=== PATIENT | female | born 1995 | race Caucasian/White ===

== ENCOUNTER 2017-04-25 02:54 | Emergency (ER) | payer OTHER ==
[2017-04-25 03:01] VITALS: RESP 16
[2017-04-25 03:26] LABS: % IMMATURE GRANULYOCYTES 0.3 % (0.0-1.1); ABSOLUTE IMMATURE GRANULOCYTES 0.03 10^3/uL (0.00-0.10); ADD DIFF? NO; ADD MORPH? NO; ADD SCAN? NO; ATYPICAL LYMPHOCYTE FLAG 10 (0-99); FRAGMENT RBC FLAG 0 (0-99); HEMATOCRIT 42.5 % (38.0-47.0); HEMOGLOBIN 15.1 g/dL (12.6-16.3); LEFT SHIFT FLG 0 (0-99); LIPEMIA HEMOLYSIS FLAG 90 (0-99); MEAN CELL HEMOGLOBIN CONCENTR. 35.5 g/dL (32.4-36.7); MEAN CELL VOLUME 87.3 fL (81.5-99.8); MEAN PLATELET VOLUME 8.7 fL (8.7-11.7); PLATELET CLUMPS FLAG 0 (0-99); PLATELET COUNT 330 10^3/uL (150-400); RED BLOOD CELL COUNT 4.87 10^6/uL (4.18-5.33); RED CELL DISTRIBUTION WIDTH 12.6 % (11.5-15.2)
[2017-04-25 03:32] LABS: COLOR YELLOW; LEUKOCYTE ESTERASE,URINE NEGATIVE (NEGATIVE); NITRITE,URINE NEGATIVE (NEGATIVE)
[2017-04-25 03:34] LABS: BACTERIA TRACE /hpf (NONE SEEN); MUCUS TRACE /lpf (NONE-1+); WBC,URINE NONE SEEN /hpf (0-3)
[2017-04-25 03:37] LABS: ANION GAP 17 mEq/L (8-16); CALCIUM 10.2 mg/dL (8.5-10.4); CARBON DIOXIDE 26 mEq/l (22-31); CHLORIDE 102 mEq/L (97-110); CREATININE 0.6 mg/dL (0.6-1.0); GLOMERULAR FILTRATION RATE > 60; GLUCOSE 86 mg/dL (70-100); SODIUM 145 mEq/L (134-144)
[2017-04-25] MEDS ORDERED: HYDROmorphONE/DILAUDID 1 MG/ML INJ IVP PRN (04:14)
[2017-04-25] MEDS ORDERED: KETOROLAC 15 MG/1 ML SDV IVP ONE (04:14)
[2017-04-25] MEDS ORDERED: IOPAMIDOL (ISOVUE-300) 100 ML BTL ONE (04:17)
--- NOTE | 2017-04-25 05:26 | EDPHY ---
H & P Stated Complaint: L Lower quad pain HPI/ROS: HPI The patient presents brought in by ambulance with left lower quadrant and left flank pain which began suddenly, about 2 hr prior to presentation. It initially felt like a bad cramp, she then noticed that she could not walk very well because the pain was so severe and she had to sit down. The pain is been constant ever since and is now more sharp in nature. She reports decreased urine output in associated nausea. She reports less appetite than usual. His she says she is having bowel movements. She has a history of as ureterolithiasis requiring stenting.. REVIEW OF SYSTEMS Constitutional: No fever, no chills. Eyes: No discharge. ENT: No sore throat. Cardiovascular: No chest pain, no palpitations. Respiratory: No cough, no shortness of breath. Gastrointestinal: Positive for abdominal pain, no vomiting. Genitourinary: No hematuria. Musculoskeletal: No back pain. Skin: No rashes. Neurological: No headache. PMHx: Scoliosis status post spinal operation, has been on opiate pain medications, history of kidney stones Soc Hx: Recently moved here from [place], college student PHYSICAL General Appearance: Alert, no distress Eyes: Pupils equal and round no pallor or injection ENT, Mouth: Mucous membranes moist Respiratory: There are no retractions, lungs are clear to auscultation Cardiovascular: Regular rate and rhythm Gastrointestinal: Abdomen is soft with tenderness in the left lower quadrant without rebound or guarding, there is also left flank tenderness, no masses, bowel sounds normal Neurological: A&O, moves all extremities Skin: Warm and dry, no rashes Musculoskeletal: Neck is supple non tender Extremities: symmetrical, full range of motion Psychiatric: Patient is oriented X 3, there is no agitation Source: Patient Exam Limitations: No limitations - Personal History LMP (Females 10-55): Irregular Current Tetanus/Diphtheria Vaccine: Yes Current Tetanus Diphtheria and Acellular Pertussis (TDAP): Yes - Medical/Surgical History Hx Asthma: No Hx Chronic Respiratory Disease: No Hx Diabetes: No Hx Cardiac Disease: No Hx Renal Disease: No Hx Cirrhosis: No Hx Alcoholism: No Hx HIV/AIDS: No Hx Splenectomy or Spleen Trauma: No Other PMH: anemia. scoliosis. migraines. anxiety. depression. IBS. interstistial cystitis - Social History Smoking Status: Never smoked Constitutional: Initial Vital Signs Temperature (C) 36.8 C 04/25/17 03:00 Heart Rate 90 04/25/17 03:00 Respiratory Rate 16 04/25/17 03:00 Blood Pressure 120/68 04/25/17 03:00 O2 Sat (%) 95 04/25/17 03:00 O2 Delivery Mode Room Air Allergies/Adverse Reactions: morphine Allergy (Verified 04/25/17 02:59) Home Medications: Medication Instructions Recorded Ferrous Gluconate [Iron] 236 mg PO 03/13/16 Hydrocodone/Acetaminophen [Vicodin 1 each PO 03/13/16 5-300 mg Tablet] Mybtriq 03/13/16 oxyCODONE HCL [Oxycontin] 10 mg PO 03/13/16 Polyethylene Glycol 3350 [Miralax 17 gm PO DAILY #10 pkt 04/25/17 17 gm (*)] Medical Decision Making - Diagnostics Imaging Results: CT scan abdomen pelvis shows constipation, discussed with Dr. Yusuf of Radiology. Procedures: Bedside limited abdominal Ultrasound- performed and interpreted by me. Indication: Hematuria and flank pain Findings: No hydronephrosis bilaterally, no fluid in Morison's pouch, no kidney stones visualized Impression: No sonographic evidence of kidney stone Differential Diagnosis: 21-year-old female with history of kidney stones, also scoliosis status post spinal operation, presents with several hours of left lower quadrant and left flank pain associated with nausea. Differential diagnosis includes ureterolithiasis, pyelonephritis, diverticulitis , colitis, constipation. In the emergency department, bedside renal ultrasound was performed and was unremarkable. Patient's pain persisted despite pain medication. CT scan was subsequently performed and showed constipation. The patient also had hematuria. It is possible she could have passed a kidney stone, however this of present there is no hydronephrosis. I think her pain could very well be related to constipation alone. I have advised her to start taking MiraLax I will have her follow up with her primary care doctor in 1-2 days. - Data Points Laboratory Results: Laboratory Results 04/25/17 03:05 04/25/17 03:05 04/25/17 04/25/17 04/25/17 03:11 03:05 03:05 WBC RBC Hgb Hct MCV MCH MCHC RDW Plt Count MPV Neut % (Auto) Lymph % (Auto) [place] % (Auto) Eos % (Auto) Baso % (Auto) Nucleat RBC Rel Count Absolute Neuts (auto) Absolute Lymphs (auto) Absolute Monos (auto) Absolute Eos (auto) Absolute Basos (auto) Absolute Nucleated RBC Immature Gran % Immature Gran # Sodium 145 mEq/L H mEq/L (134-144) Potassium 4.0 mEq/L mEq/L (3.5-5.2) Chloride 102 mEq/L mEq/L (97-110) Carbon Dioxide 26 mEq/l mEq/l (22-31) Anion Gap 17 mEq/L H mEq/L (8-16) BUN 9 mg/dL mg/dL (7-23) Creatinine 0.6 mg/dL mg/dL (0.6-1.0) Estimated GFR > 60 Glucose 86 mg/dL mg/dL (70-100) Calcium 10.2 mg/dL mg/dL (8.5-10.4) Beta HCG, Qual NEGATIVE Urine Color YELLOW Urine Appearance CLEAR Urine pH 6.0 (5.0-7.5) Ur Specific [place] 1.010 (1.002-1.030) Urine Protein NEGATIVE (NEGATIVE) Urine Ketones TRACE H (NEGATIVE) Urine Blood 1+ H (NEGATIVE) Urine Nitrate NEGATIVE (NEGATIVE) Urine Bilirubin NEGATIVE (NEGATIVE) Urine Urobilinogen NEGATIVE EU EU (0.2-1.0) Ur Leukocyte Esterase NEGATIVE (NEGATIVE) Urine RBC 10-15 /hpf H /hpf (0-3) Urine WBC NONE SEEN /hpf /hpf (0-3) Ur Epithelial Cells TRACE /lpf /lpf (NONE-1+) Urine Bacteria TRACE /hpf H /hpf (NONE SEEN) Urine Mucus TRACE /lpf /lpf (NONE-1+) Urine Glucose NEGATIVE (NEGATIVE) 04/25/17 03:05 WBC 9.84 10^3/uL H 10^3/uL (3.80-9.50) RBC 4.87 10^6/uL 10^6/uL (4.18-5.33) Hgb 15.1 g/dL g/dL (12.6-16.3) Hct 42.5 % % (38.0-47.0) MCV 87.3 fL fL (81.5-99.8) MCH 31.0 pg pg (27.9-34.1) MCHC 35.5 g/dL g/dL (32.4-36.7) RDW 12.6 % % (11.5-15.2) Plt Count 330 10^3/uL 10^3/uL (150-400) MPV 8.7 fL fL (8.7-11.7) Neut % (Auto) 61.4 % % (39.3-74.2) Lymph % (Auto) 31.3 % % (15.0-45.0) [place] % (Auto) 6.1 % % (4.5-13.0) Eos % (Auto) 0.5 % L % (0.6-7.6) Baso % (Auto) 0.4 % % (0.3-1.7) Nucleat RBC Rel Count 0.0 % % (0.0-0.2) Absolute Neuts (auto) 6.04 10^3/uL 10^3/uL (1.70-6.50) Absolute Lymphs (auto) 3.08 10^3/uL H 10^3/uL (1.00-3.00) Absolute Monos (auto) 0.60 10^3/uL 10^3/uL (0.30-0.80) Absolute Eos (auto) 0.05 10^3/uL 10^3/uL (0.03-0.40) Absolute Basos (auto) 0.04 10^3/uL 10^3/uL (0.02-0.10) Absolute Nucleated RBC 0.00 10^3/uL 10^3/uL (0-0.01) Immature Gran % 0.3 % % (0.0-1.1) Immature Gran # 0.03 10^3/uL 10^3/uL (0.00-0.10) Sodium Potassium Chloride Carbon Dioxide Anion Gap BUN Creatinine Estimated GFR Glucose Calcium Beta HCG, Qual Urine Color Urine Appearance Urine pH Ur Specific [place] Urine Protein Urine Ketones Urine Blood Urine Nitrate Urine Bilirubin Urine Urobilinogen Ur Leukocyte Esterase Urine RBC Urine WBC Ur Epithelial Cells Urine Bacteria Urine Mucus Urine Glucose Medications Given: Discontinued Medications Ketorolac Tromethamine (Toradol) 15 mg IVP EDNOW ONE Stop: 04/25/17 04:15 Last Admin: 04/25/17 04:42 Dose: 15 mg Departure - Departure Disposition: Home, Routine, Self-Care Clinical Impression: Left sided abdominal pain, Hematuria, Constipation Condition: Good Instructions: Constipation (ED), High Fiber Diet (ED) Additional Instructions: Please take the MiraLax as prescribed. Your CT scan showed that you have constipation. It is possible that you may have passed a kidney stone because we found the blood in your urine. Please make sure to drink plenty of fluids. Follow up with your primary care doctor in 1-2 days. Referrals: Yee Cali RN, FAILURE ANALYSIS TECHNICIAN [Primary Care Provider] - As per Instructions Prescriptions: Polyethylene Glycol 3350 [Miralax 17 gm (*)] 17 gm PO DAILY #10 pkt
[2017-04-25 05:42] VITALS: BP 132/74; PULSE 70; TEMP 98.1; O2SAT 97
== END 2017-04-25 05:43 | disposition home or self-care (01) ==
LOC: EDUNIT#
DX: K59.00 Constipation, unspecified (principal); R31.9 Hematuria, unspecified
CPT/HCPCS: 96374; J1885; Q9967

== ENCOUNTER 2018-06-07 13:21 | Inpatient (IN) | payer OTHER ==
--- NOTE | 2018-06-07 13:27 | EDPHY ---
H & P Time Seen by Provider: 06/07/18 13:25 - Medical/Surgical History Hx Asthma: No Hx Chronic Respiratory Disease: No Hx Diabetes: No Hx Cardiac Disease: No Hx Renal Disease: No Hx Cirrhosis: No Hx Alcoholism: No Hx HIV/AIDS: No Hx Splenectomy or Spleen Trauma: No Other PMH: anemia. scoliosis. migraines. anxiety. depression. IBS. interstistial cystitis - Social History Smoking Status: Never smoked Constitutional: Initial Vital Signs Temperature (C) 36.3 C 06/07/18 13:25 Heart Rate 78 06/07/18 13:25 Respiratory Rate 18 06/07/18 13:25 Blood Pressure 98/63 L 06/07/18 13:25 O2 Sat (%) 96 06/07/18 13:25 O2 Delivery Mode Room Air Allergies/Adverse Reactions: fentanyl Allergy (Mild, Verified 06/07/18 14:25) Itching morphine Allergy (Verified 06/07/18 13:24) Home Medications: Medication Instructions Recorded LORazepam [Ativan (*)] 0.5 mg PO DAILY PRN 06/07/18 Naproxen Sodium [Aleve 220 MG (*)] 220 mg PO BID PRN 06/07/18 Ondansetron Odt [Zofran Odt 4 mg 4 mg PO Q6H PRN 06/07/18 (*)] Seroquel 06/07/18 Sumatriptan Succinate 100 mg PO ONCE PRN 06/07/18 ZOLMitriptan [Zomig] 5 mg NS ONCE PRN 06/07/18 Medical Decision Making - Diagnostics Imaging Results: Imaging Impressions Abdomen Ultrasound 06/07/18 13:34 Impression: Incomplete visualization of the probable appendix with no sonographic evidence of appendicitis. Findings discussed with Karl Alonzo MD 06/07/2018 at 15:13. Pelvic/Renal Ultrasound 06/07/18 13:34 Impression: 6.8 cm hemorrhagic cyst in the right ovary. Given size, a six-week follow-up ultrasound is recommended to ensure resolution. Findings discussed with Karl Alonzo MD 06/07/2018 at 15:13. Imaging: Discussed imaging studies w/ straddle bug driver Radiologist ED Course/Re-evaluation: CHIEF COMPLAINT: Abdominal pain HISTORY OF PRESENT ILLNESS: This patient is a 22 year old female arriving via EMS complaining of right- sided abdominal pain. She states "I'm concerned about my appendix". She has had diarrhea and nausea for the past two days. This morning, considerable pain in her right lower quadrant woke her from sleep at 6:00am. She has vomited several times today and endorses fevers and chills. The patient notes she has a "condition where her [abdominal] anatomy is not in the right spot" and has history of bowel obstruction. She has not undergone surgeries for this but was told this may be a concern in the future. The patient additionally states she used to be on Depo, but discontinued this over the summer. She has not had any prior adverse symptoms from this. EMS crews administered 4mg IV Zofran and 100mcg IV Fentanyl in transport, which helped relieve her symptoms. She denies any blood in her stool or emesis. No chest pain, shortness of breath, headache, urinary complaints, recent cold or cough, or other associated symptoms. REVIEW OF SYSTEMS: A comprehensive 10 system review of systems is otherwise negative aside from elements mentioned in the history of present illness and medical decision making. PHYSICAL EXAM: HR, BP, O2 Sat, RR. Temp noted General Appearance: Alert, well hydrated, appropriate, and non-toxic appearing. Head: Atraumatic without scalp tenderness or obvious injury Eyes: Pupils equal, round, reactive to light and accommodation, EOMI, no trauma , no injection. Ears: Clear bilaterally, no perforation, normal landmarks Nose: Atraumatic, no rhinorrhea, clear. Throat: There is no erythema or exudates, no lesions, normal tonsils, mucus membranes moist. Neck: Supple, nontender, no lymphadenopathy. Respiratory: No retractions, no distress, no wheezes, and no accessory muscle use. Lungs are clear to auscultation bilaterally. Cardiovascular: Regular rate and rhythm, no murmurs, rubs, or gallops. Bilateral carotid, radial, dorsalis pedis, and posterior tibial pulses intact. Good capillary refill all extremities. Gastrointestinal: RLQ tenderness, below McBurney's point. Abdomen is soft, non- distended, no masses, no rebound, no guarding, no peritoneal signs. Musculoskeletal: Normal active ROM of all extremities, atraumatic. Neurological: Alert, appropriate, and interactive. The patient has normal DTRs and non-focal cranial nerves, motor, sensory, and cerebellar exam. Skin: No rashes, good turgor, no nodules on palpation. Past medical history: Anemia, scoliosis, migraines, anxiety, depression Past surgical history: Noncontributory. Patient has not had any abdominal surgeries. Family history: Noncontributory Social history: [facility] [employer]. Single. Does not abuse tobacco, drugs, or alcohol. DIFFERENTIAL DIAGNOSIS: The differential diagnosis for the patient's abdominal pain included but was not limited to ovarian cyst, pelvic inflammatory disease, ovarian torsion, urinary tract infection, ectopic , cholecystitis, and appendicitis. MEDICAL DECISION MAKIN22 y/o female presents with two day history of nausea and diarrhea with acute onset right lower abdominal pain which woke her from sleep this morning. On exam , she has tenderness to the RLQ, lower than McBurney's point. Plan for labs including CBC, chemistries, liver, lipase, BHCG, UA. Plan to administer 30g IV ketorolac and 100mcg Fentanyl for pain relief. Plan to administer Zofran prn for nausea - patient currently feels relief from Zofran administered in transport. Plan for US abdomen and pelvis. Reviewed laboratory studies. WBC is mildly elevated. Labs otherwise largely unremarkable. BCHG negative. 15:[address] Boyer, radiologist. US shows evidence of large right- sided hemorrhagic ovarian cyst, 6.8cm. Partially visualized appendix appears normal. Recommend followup US in 4-6 weeks. Reassessed patient. Discussed imaging results. Patient has not been able to tolerate food or fluids. Plan for PO challenge prior to discharge. Discussed possibility of admission for symptom management if the patient cannot tolerate PO challenge. Patient still not feeling well after four hours. Plan to admit. Dr. Lowe accepts admission to mom/baby floor for further treatment of hemorrhagic ovarian cyst with free fluid and intractable pain and nausea. Of note, there is no ovarian torsion noted, no evidence of other acute intraabdominal processes at this time. - Data Points Laboratory Results: Laboratory Results 06/07/18 13:45 06/07/18 13:45 06/07/18 06/07/18 06/07/18 14:40 13:45 13:45 WBC RBC Hgb Hct MCV MCH MCHC RDW Plt Count MPV Neut % (Auto) Lymph % (Auto) [place] % (Auto) Eos % (Auto) Baso % (Auto) Nucleat RBC Rel Count Absolute Neuts (auto) Absolute Lymphs (auto) Absolute Monos (auto) Absolute Eos (auto) Absolute Basos (auto) Absolute Nucleated RBC Immature Gran % Immature Gran # Sodium 136 mEq/L mEq/L (135-145) Potassium 3.9 mEq/L mEq/L (3.5-5.2) Chloride 106 mEq/L mEq/L (97-110) Carbon Dioxide 24 mEq/l mEq/l (22-31) Anion Gap 6 mEq/L mEq/L (6-14) BUN 8 mg/dL mg/dL (7-23) Creatinine 0.5 mg/dL L mg/dL (0.6-1.0) Estimated GFR > 60 Glucose 84 mg/dL mg/dL (70-100) Calcium 9.2 mg/dL mg/dL (8.5-10.4) Total Bilirubin 0.4 mg/dL mg/dL (0.1-1.4) Conjugated Bilirubin 0.3 mg/dL mg/dL (0.0-0.5) Unconjugated Bilirubin 0.1 mg/dL mg/dL (0.0-1.1) AST 18 IU/L IU/L (14-46) ALT 23 IU/L IU/L (9-52) Alkaline Phosphatase 64 IU/L IU/L (38-126) Total Protein 6.8 g/dL g/dL (6.3-8.2) Albumin 4.1 g/dL g/dL (3.5-5.0) Lipase 176 IU/L IU/L (23-300) Beta HCG, Qual NEGATIVE Urine Color PALE YELLOW Urine Appearance CLEAR Urine pH 7.0 (5.0-7.5) Ur Specific [place] 1.006 (1.002-1.030) Urine Protein NEGATIVE (NEGATIVE) Urine Ketones NEGATIVE (NEGATIVE) Urine Blood NEGATIVE (NEGATIVE) Urine Nitrate NEGATIVE (NEGATIVE) Urine Bilirubin NEGATIVE (NEGATIVE) Urine Urobilinogen NEGATIVE EU EU (0.2-1.0) Ur Leukocyte Esterase NEGATIVE (NEGATIVE) Urine RBC NONE SEEN /hpf /hpf (0-3) Urine WBC 0-1 /hpf /hpf (0-3) Ur Epithelial Cells TRACE /lpf /lpf (NONE-1+) Urine Bacteria 2+ /hpf H /hpf (NONE SEEN) Urine Mucus TRACE /lpf /lpf (NONE-1+) Urine Glucose NEGATIVE (NEGATIVE) 06/07/18 13:45 WBC 9.54 10^3/uL H 10^3/uL (3.80-9.50) RBC 4.74 10^6/uL 10^6/uL (4.18-5.33) Hgb 14.6 g/dL g/dL (12.6-16.3) Hct 43.4 % % (38.0-47.0) MCV 91.6 fL fL (81.5-99.8) MCH 30.8 pg pg (27.9-34.1) MCHC 33.6 g/dL g/dL (32.4-36.7) RDW 12.8 % % (11.5-15.2) Plt Count 262 10^3/uL 10^3/uL (150-400) MPV 8.9 fL fL (8.7-11.7) Neut % (Auto) 76.9 % H % (39.3-74.2) Lymph % (Auto) 17.2 % % (15.0-45.0) [place] % (Auto) 4.6 % % (4.5-13.0) Eos % (Auto) 0.6 % % (0.6-7.6) Baso % (Auto) 0.4 % % (0.3-1.7) Nucleat RBC Rel Count 0.0 % % (0.0-0.2) Absolute Neuts (auto) 7.33 10^3/uL H 10^3/uL (1.70-6.50) Absolute Lymphs (auto) 1.64 10^3/uL 10^3/uL (1.00-3.00) Absolute Monos (auto) 0.44 10^3/uL 10^3/uL (0.30-0.80) Absolute Eos (auto) 0.06 10^3/uL 10^3/uL (0.03-0.40) Absolute Basos (auto) 0.04 10^3/uL 10^3/uL (0.02-0.10) Absolute Nucleated RBC 0.00 10^3/uL 10^3/uL (0-0.01) Immature Gran % 0.3 % % (0.0-1.1) Immature Gran # 0.03 10^3/uL 10^3/uL (0.00-0.10) Sodium Potassium Chloride Carbon Dioxide Anion Gap BUN Creatinine Estimated GFR Glucose Calcium Total Bilirubin Conjugated Bilirubin Unconjugated Bilirubin AST ALT Alkaline Phosphatase Total Protein Albumin Lipase Beta HCG, Qual Urine Color Urine Appearance Urine pH Ur Specific [place] Urine Protein Urine Ketones Urine Blood Urine Nitrate Urine Bilirubin Urine Urobilinogen Ur Leukocyte Esterase Urine RBC Urine WBC Ur Epithelial Cells Urine Bacteria Urine Mucus Urine Glucose Medications Given: Discontinued Medications Hydrocodone Bitart/Acetaminophen ([place] 5/325) 2 tab PO EDNOW ONE Stop: 06/07/18 16:20 Last Admin: 06/07/18 16:24 Dose: 2 tab Diphenhydramine HCl (Benadryl Injection) 25 mg IVP EDNOW ONE Stop: 06/07/18 14:20 Last Admin: 06/07/18 14:24 Dose: 25 mg Fentanyl (Sublimaze) 100 mcg IVP EDNOW ONE Stop: 06/07/18 13:35 Last Admin: 06/07/18 13:45 Dose: 100 mcg Sodium Chloride (Ns) 1,000 mls @ 0 mls/hr IV EDNOW ONE; Wide Open PRN Reason: Protocol Stop: 06/07/18 13:33 Last Admin: 06/07/18 13:45 Dose: 1,000 mls Sodium Chloride (Ns) 1,000 mls @ 0 mls/hr IV EDNOW ONE; Wide Open PRN Reason: Protocol Stop: 06/07/18 13:33 Last Admin: 06/07/18 14:24 Dose: 1,000 mls Ketorolac Tromethamine (Toradol) 30 mg IVP EDNOW ONE Stop: 06/07/18 13:35 Last Admin: 06/07/18 13:46 Dose: 30 mg Ondansetron HCl (Zofran) 4 mg IVP EDNOW ONE Stop: 06/07/18 13:33 Last Admin: 06/07/18 13:46 Dose: 4 mg Departure - Departure Disposition: [facility] Clinical Impression: Hemorrhagic cyst of right ovary Condition: Fair Instructions: Ovarian Cyst (ED) Referrals: Rhonda Lowe DO [Doctor of Osteopathy] - As per Instructions Report Scribed for: Karl Alonzo Report Scribed by: Jessenia Lux Date of Report: 06/07/18 Time of Report: 13:36
[2018-06-07] MEDS ORDERED: NS 1,000 ML IV ONE ×2 (13:32)
[2018-06-07] MEDS ORDERED: ONDANSETRON 4 MG/2 ML VIAL IVP ONE (13:32)
[2018-06-07] MEDS ORDERED: KETOROLAC 30 MG/1 ML SDV IVP ONE (13:34)
[2018-06-07] MEDS ORDERED: fentaNYL 100 MCG/2 ML INJ IVP ONE (13:34)
[2018-06-07 14:10] LABS: PLATELET COUNT 262 10^3/uL (150-400)
[2018-06-07] MEDS ORDERED: HYDROCODONE/APAP 5/325 TAB PO ONE (16:19)
[2018-06-07] MEDS: KETOROLAC 30 MG/1 ML SDV IVP PRN (21:02)
--- NOTE | 2018-06-07 21:30 | GHP ---
[f rep st] HISTORY AND PHYSICAL ADMITTING DIAGNOSES: 1. Right lower quadrant pain. 2. Nausea/vomiting. HISTORY OF PRESENT ILLNESS: Patient is a 22-year-old nulliparous female with unknown last menstrual period, who arrives to the emergency room this evening via EMS complaining of right-sided abdominal pain. Patient states "I'm concerned about my appendix." She has had diarrhea and nausea and just not feeling well for the past week. This morning at 6 a.m., she woke up in considerable pain in her right lower quadrant. She states it is mostly localized. Pain is exacerbated with laughing and sharp movement. She does endorse nausea and vomited several times earlier today. Also endorses fevers and chills. Patient notes that she has a "condition where her abdominal anatomy is not it the right spot," and has a history of bowel obstruction. She has not undergone surgery for this but was told this may be a concern in the future. Patient is not using control at this time and discontinued Depo in October/November of 2017. She has not had a menstrual period since then. Patient does not recall history of ovarian cysts or any pain like this. Patient did receive Zofran and fentanyl in transport, which helped relieve her symptoms. She denies any chest pain, shortness of breath, or any urinary complaints. Patient does have a history of interstitial cystitis and history of back pain with 3 rods placed and narcotic use. Patient lives here in [place] and does not have a flight purser. PAST OB/GYNECOLOGICAL HISTORY: Patient is nulliparous. Unknown last menstrual period. Last Depo injection was November 2017. Patient does not have a history of abnormal Pap smears, and denies exposure to any STDs. PAST MEDICAL HISTORY: Remarkable for anemia, scoliosis, back pain, migraines, anxiety, depression, irritable bowel syndrome, and interstitial cystitis. PAST SURGICAL HISTORY: Back surgery with placement of 3 rods. CURRENT MEDICATIONS: Include Ativan, Aleve, Zofran ODT, Seroquel, Sumatriptan succinate, and Zomig. ALLERGIES: Morphine, fentanyl. FAMILY HISTORY: Unremarkable. SOCIAL HISTORY: Patient is a student at [employer]. She denies any illicit drug use or tobacco use. Does admit to marijuana use and socially drinking alcohol. REVIEW OF SYSTEMS: 10-point review of systems is negative. Pertinent positives noted in HPI. LABORATORY: White count is 9.5, H and H 14.6 and 43.4, platelets 262. BMP is normal. Qualitative beta hCG is negative. Urine is 2+ bacteria, trace epithelial cells, and a spec grav of 1.006. STUDIES: On pelvic ultrasound, uterus measures 3 x 3 x 6 cm. Bladder is normal appearing. The right ovary is 5 x 6 x 6 cm with a hemorrhagic cyst measuring 6.7 x 6.8 cm, essentially replacing the right ovary. Scant normal ovarian tissue is identified. There is flow to this ovary. Left ovary is normal appearing, 2 x 2 x 3.5 cm. There is moderate free fluid. The patient also had an abdominal ultrasound, which showed incomplete visualization of the appendix, but no sonographic evidence of an appendicitis. PHYSICAL EXAMINATION: VITAL SIGNS: On admission, the patient is afebrile at 36.3; blood pressure 98/63, repeated 113/59; heart rate 78; respiratory rate 18. GENERAL: Patient is a well-nourished, well-developed female. ASlert and oriented x3. No apparent distress here on the floor. SKIN: Warm, dry, without rash. NEURO: Grossly intact. CARDIOVASCULAR: Regular rate and rhythm. LUNGS: Clear to auscultation bilaterally. ABDOMEN: She is mildly/ moderately tender right lower quadrant. Abdomen is soft, nondistended. There are no peritoneal signs. There is no rebound but voluntary guarding. PELVIC: Deferred at this time. EXTREMITIES: Normal to inspection without calf tenderness or edema. ASSESSMENT AND PLAN: Patient is a 22-year-old nulliparous female with unknown last menstrual period with right lower quadrant pain, nausea and vomiting. 1. Will admit for observation for pain control. 2. Will continue Toradol and add Dilaudid for breakthrough severe pain. 3. Continue antiemetics - Zofran. 4. Patient is hemodynamically stable at this time, and does not have an acute abdomen. 5. Discussed observation overnight to see if there is adequate pain control. 7. Will keep patient nothing by mouth after midnight along with intravenous fluids, and if there is worsening pain will proceed with dx laparoscopy. /[id number]/MODL MTDD
[2018-06-07] MEDS: HYDROmorphONE/DILAUDID 1 MG/ML INJ IVP PRN (22:38)
[2018-06-08] MEDS: LR 1,000 ML IV SCH ×2 (00:17→07:48)
[2018-06-08] MEDS: QUEtiapine FUMARATE 25 MG TAB PO SCH ×3 (00:17→23:58)
[2018-06-08] MEDS: ONDANSETRON 4 MG/2 ML VIAL IVP PRN ×2 (01:09→11:05)
[2018-06-08] MEDS: HYDROmorphONE/DILAUDID 1 MG/ML INJ IVP PRN ×4 (01:09→10:48)
[2018-06-08] MEDS: KETOROLAC 30 MG/1 ML SDV IVP PRN ×2 (03:02→09:06)
[2018-06-08] MEDS ORDERED: HYDROmorphONE/DILAUDID 1 MG/ML INJ IVP PRN (12:37)
[2018-06-08] MEDS: IBUPROFEN 600 MG TAB PO SCH ×2 (14:26→17:57)
[2018-06-08] MEDS: ACETAMINOPHEN 325 MG TAB PO SCH ×2 (14:28→17:56)
[2018-06-08] MEDS: oxyCODONE IR 5 MG TAB PO PRN ×3 (14:29→20:12)
--- NOTE | 2018-06-08 15:32 | SOAPPROG ---
SOAP Progress Note Assessment/Plan: Assessment: HD 2 LLQ pain CYNTHIA cyst stable H/H Plan: Long disc with pt and mom. If pain dictates, then we need to proceed to OR....but concern that ovary might need to be removed. If pain can be managed orally, then can we allow spont resolution? Pt and mom discussed and want to try conservative management. will allow to eat and try regular ibu/tyl and oxy IR for break through severe pain. 06/08/18 15:27 Subjective: Pt states intense pain and not getting any relief from iv dilaudid. Disc plan with pt and mom.... either proceed to OR but concern she will have RSO vs try oral management. Long disc with pt and mom - disc ovarian suppression with hormone BC - pt reports being on Depo for 5-6 yrs... needs to give hormone holiday off Depo for bone health but needs ovarian suppression to prevent further cysts. She has migraines but denies aura --concern if combo pills will aggravate migraines but rec trying. After time to disc privately, pt decides to try conservative management. will allow reg diet and ibu/tyl and oxy prn Objective: Vital Signs Temp Pulse Resp BP Pulse Ox 36.8 C 70 16 99/61 L 99 06/08/18 08:00 06/08/18 10:54 06/08/18 10:54 06/08/18 10:54 06/08/18 10:54 Laboratory Results 06/08/18 13:10 06/07/18 06/08/18 06/09/18 05:59 05:59 05:59 Intake Total 2925 Output Total 350 Balance 2925 -350 - Time Spent With Patient Time Spent With Patient: 35 min spent in direct contact Physical Exam - Physical Exam General Appearance: WD/WN, alert Abdomen: non-tender (mildly tender, non distended.), soft Pelvic Exam: deferred Skin: normal color, warm/dry Extremities: non-tender, pedal edema (nonee) Neuro/Psych: alert ICD10 Worksheet Patient Problems: Problems Problem Status Onset Hemorrhagic cyst of right ovary Acute
[2018-06-08] MEDS ORDERED: Zolmitriptan [Zomig] 5 MG NS PRN (16:31)
--- NOTE | 2018-06-08 17:28 | PDMN ---
Medical Necessity Medical necessity: Change to inpt as of 06/08/18 @ 17:13, meets inpt criteria per MD order and Pain management GRG. 22 y/o admitted w/RLQ pain/nausea/diarrhea /fevers and chills, found to have hemorrhagic ovarian cyst in R ovary. Upgraded to inpt for pain management, despite IV Dilaudid roughly every 3-4hrs still w/ significant pain, surgery option discussed, attempting to see if pain can be managed w/PO meds and allow for spont resolution, surgery still possibility, still on IVF, IV antiemetics, anticipate>2MN for ongoing management of significant pain w/ovarian cyst.
[2018-06-08] MEDS ORDERED: oxyCODONE IR 5 MG TAB PO ONE (18:30)
[2018-06-08] MEDS: LORazepam 1 MG TAB PO PRN ×2 (18:50→23:51)
[2018-06-08] MEDS ORDERED: QUEtiapine FUMARATE 25 MG TAB PO SCH (21:00)
[2018-06-08] MEDS ORDERED: BISACODYL 10 MG SUPP PR PRN (21:09)
[2018-06-08] MEDS ORDERED: MAGNESIUM HYDROXIDE 30 ML UDCUP PO PRN (21:09)
[2018-06-08] MEDS ORDERED: LACTULOSE 20 GM/30 ML UDCUP PO PRN (21:09)
[2018-06-08] MEDS ORDERED: POLYETHYLENE GLYCOL 3350 17 GM PKT PO PRN (21:09)
[2018-06-08] MEDS ORDERED: QUEtiapine FUMARATE 25 MG TAB PO ONE (22:45)
--- NOTE | 2018-06-08 22:48 | SOAPPROG ---
SOAP Progress Note Assessment/Plan: Assessment: HD 2 LLQ pain - cont pain but managing on oral CYNTHIA cyst stable H/H Plan: Long disc with pt approx 1800. she states she's still having pain and really felt uncomfortable after pushing for BM. encouraged regular urination so bldr doesn't get too full and stool softeners. Pt states she's anxious to go home due to very stressful environment with boyfriend. Disc +/- of surg vs conservative obs. If needs increased pain meds tonight to get on top of pain, will reassess in am but cannot stay on high dose meds for long. rec adding ativan to help reduce anxiety. 06/08/18 15:27 06/08/18 22:42 Subjective: Pt states cont pain but still wanting to watch and try more oral meds to see if able to avoid surgery. Rec regular bowel meds to avoid constipation and urinating freq. Objective: Vital Signs Temp Pulse Resp BP Pulse Ox 36.4 C 85 16 108/74 95 06/08/18 22:00 06/08/18 22:00 06/08/18 22:00 06/08/18 22:00 06/08/18 22:00 06/07/18 06/08/18 06/09/18 05:59 05:59 05:59 Intake Total 500 Output Total 500 Balance 0 - Time Spent With Patient Time Spent With Patient: 30 min spent with pt Physical Exam - Physical Exam General Appearance: WD/WN Abdomen: non-tender (tender generally but not acute abd), soft, guarding Pelvic Exam: deferred Skin: normal color, warm/dry Extremities: non-tender Neuro/Psych: alert ICD10 Worksheet Patient Problems: Problems Problem Status Onset Hemorrhagic cyst of right ovary Acute
[2018-06-08] MEDS: SENNOSIDES/DOCUSATE SODIUM TAB PO SCH (23:50)
[2018-06-08] MEDS: diphenhydrAMINE 25 MG CAP PO PRN (23:50)
[2018-06-09] MEDS: IBUPROFEN 600 MG TAB PO SCH ×4 (00:05→19:45)
[2018-06-09] MEDS: ACETAMINOPHEN 325 MG TAB PO SCH ×4 (00:05→19:44)
[2018-06-09] MEDS: oxyCODONE IR 5 MG TAB PO PRN ×3 (01:31→15:02)
[2018-06-09] MEDS: ONDANSETRON 4 MG/2 ML VIAL IVP PRN ×3 (09:47→20:43)
[2018-06-09] MEDS: SENNOSIDES/DOCUSATE SODIUM TAB PO SCH (09:55)
[2018-06-09] MEDS: diphenhydrAMINE 25 MG CAP PO PRN (12:43)
--- NOTE | 2018-06-09 13:19 | SOAPPROG ---
SOAP Progress Note Assessment/Plan: Assessment: 22 G0 with RLQ pain with known 6-7cm R ov cyst, pain not controlled to her satisfaction, but does not have a surgical abdomen has been intermittently sleeping throughout the day. Hyperactive BS, no BM in 3 days. H/H dropping slightly - presumed dilutional effect. Plan: Long discussion with pt and her mom. Will continue with conservative mgmt for now - oral pain medication, antinausea medication. Obtain CT scan in AM. Repeat CBC and CMP in AM. Re-evaluate after labs and imaging. Carin Hernandez MD, [facility] 06/10/18 00:25 Subjective: Pt seen around 2300. Concerns that despite sleeping intermittently through the day, pain is not well controlled - better with dilaudid, but not sufficient. Has not had a BM since prior to admission. Ate dinner, but then vomited it up when had an episode of severe pain. Pt feels she has not made progress iwth pain control since admission, though her mom feels and has observed that her pain seems to be under better control. Objective: Vital Signs Temp Pulse Resp BP Pulse Ox 37.1 C 82 18 90/63 L 94 06/09/18 10:03 06/09/18 10:03 06/09/18 10:03 06/09/18 10:03 06/09/18 10:03 Laboratory Results 06/09/18 06:10 06/08/18 06/09/18 06/10/18 05:59 05:59 05:59 Intake Total 1300 Output Total 1800 200 Balance -500 -200 Temp Pulse Resp BP Pulse Ox 37.3 C 82 16 106/68 97 06/10/18 00:00 06/10/18 00:00 06/10/18 00:00 06/10/18 00:00 06/10/18 00:00 gen - resting comfortably in bed, conversing easily abd - soft, no rebound, mild guarding in RLQ - Time Spent With Patient Time Spent With Patient: 15 min - Pending Discharge Pending Discharge Within 24 Hours: Yes Pending Discharge Within 48 Hours: Yes Pending Discharge Date: 06/11/18 Pending Discharge Time: 11:00 ICD10 Worksheet Patient Problems: Problems Problem Status Onset Hemorrhagic cyst of right ovary Acute
--- NOTE | 2018-06-09 17:31 | SOAPPROG ---
JUAN ALBERTO Progress Note Assessment/Plan: Assessment: Assessment: 22 y/o nulliparous female with RLQ pain and hemorrhagic right ovarian cyst HD #3 Plan: Pain is not well controlled on 20 mg Oxy, Tylenol and Motrin per pt - pain 9/10 currently; vomited x 3 today Discussed switching to oral Dilaudid and if no pain relief then recommend going to OR for dx laparoscopy If pain is well controlled with Dilaudid, plan for d/c in am 2/2 with plan for surgery 06/13 Pt agrees with this plan Will add Miralax to help with BM Cont Zofran prn 06/09/18 17:26 Subjective: Pt seen and examined. She states pain currently 9/10 and mostly in RLQ. Getting 20 mg Oxy, Tylenol and Motrin ATC. She has an ice pack on. She vomited three times today and hasn't eaten much. No BM while here in hospital and pain worsens with trying to have a BM. Denies any fevers or chills. Objective: Vital Signs Temp Pulse Resp BP Pulse Ox 36.8 C 77 16 90/58 L 96 06/09/18 16:00 06/09/18 16:00 06/09/18 16:00 06/09/18 16:00 06/09/18 16:00 Laboratory Results 06/09/18 06:10 06/08/18 06/09/18 06/10/18 05:59 05:59 05:59 Intake Total 1300 Output Total 1800 200 Balance -500 -200 Physical Exam - Physical Exam General Appearance: WD/WN, alert, no apparent distress Abdomen: soft, other (mild-mod TTP RLQ with voluntary guarding; no rebound) Skin: normal color, warm/dry Neuro/Psych: alert, normal mood/affect, oriented x 3 ICD10 Worksheet Patient Problems: Problems Problem Status Onset Hemorrhagic cyst of right ovary Acute
[2018-06-09] MEDS ORDERED: POLYETHYLENE GLYCOL 3350 17 GM PKT PO PRN (17:34)
[2018-06-09] MEDS: HYDROmorphONE/DILAUDID 2 MG TAB PO PRN ×2 (17:55→23:06)
[2018-06-10] MEDS: SENNOSIDES/DOCUSATE SODIUM TAB PO SCH ×3 (00:37→20:16)
[2018-06-10] MEDS: QUEtiapine FUMARATE 25 MG TAB PO SCH (00:38)
[2018-06-10] MEDS: ACETAMINOPHEN 325 MG TAB PO SCH ×4 (02:10→17:51)
[2018-06-10] MEDS: IBUPROFEN 600 MG TAB PO SCH ×4 (02:11→17:50)
[2018-06-10] MEDS: LORazepam 1 MG TAB PO PRN ×2 (02:21→22:59)
[2018-06-10] MEDS: HYDROmorphONE/DILAUDID 2 MG TAB PO PRN ×4 (06:10→21:04)
[2018-06-10 06:43] LABS: PLATELET COUNT 213 10^3/uL (150-400)
--- NOTE | 2018-06-10 07:49 | SOAPPROG ---
SOAP Progress Note Assessment/Plan: Assessment: 22 G0 with RLQ pain with known 6-7cm R ov cyst, pain not controlled to her satisfaction, but does not have a surgical abdomen has been intermittently sleeping throughout the day. Hyperactive BS, no BM in 3 days. H/H dropping slightly - presumed dilutional effect. Plan: Long discussion with pt and her mom. Will continue with conservative mgmt for now - oral pain medication, antinausea medication. Obtain CT scan in AM. Repeat CBC and CMP in AM. Re-evaluate after labs and imaging. Carin Hernandez MD, [facility] 06/10/18 00:25 22 yo G0 with RLQ pain, known 6-7cm R ov cyst, pain not well controlled with po meds. Still does not have a surgical abdomen on exam, but will do abd/pelvic CT with and with out contrast this morning, as unclear if we are missing something. H/H has dropped since admission - initially thought to be dilutional, but will further evaluate with CT scan. Carin Hernandez MD, [facility] 06/10/18 07:45 Subjective: Pt says she has not been sleeping much overnight. Per RN - has been sleeping majority of the time since 0300. Currently, pt requested to go back to sleep right now. No nausea currently. Objective: Vital Signs Temp Pulse Resp BP Pulse Ox 37.1 C 88 16 100/58 L 94 06/10/18 04:05 06/10/18 04:05 06/10/18 04:05 06/10/18 04:05 06/10/18 04:05 Laboratory Results 06/10/18 06:30 06/10/18 06:30 06/09/18 06/10/18 06/11/18 05:59 05:59 05:59 Intake Total 1300 Output Total 1800 1400 Balance -500 -1400 gen - pleasant, groggy female, rolled quickly from one side to the other, pulling up her covers, requesting to let her sleep. abd - soft, flat, no rebound, mild guarding in RLQ - Time Spent With Patient Time Spent With Patient: 5 min - Pending Discharge Pending Discharge Within 24 Hours: Yes Pending Discharge Within 48 Hours: Yes Pending Discharge Date: 06/11/18 Pending Discharge Time: 11:00 ICD10 Worksheet Patient Problems: Problems Problem Status Onset Hemorrhagic cyst of right ovary Acute
[2018-06-10] MEDS ORDERED: IOHEXOL 300 mgI/ML (OMNIPAQUE) 150 ML BTL IV ONE (10:25)
[2018-06-10] MEDS: ONDANSETRON 4 MG/2 ML VIAL IVP PRN (15:21)
--- NOTE | 2018-06-10 16:41 | SOAPPROG ---
SOAP Progress Note Assessment/Plan: Assessment: 22 y/o G0 with hemorrhagic Right ovarian cyst HD #3. Plan: CBC, CMP and abdominal pelvic CT remain unchanged. Only significant findings are Right ovarian cyst, no evidence of active bleeding or torsion, normal appendix and bowel. We had a lengthy discussion about expectant management with PO pain meds and d/c home today to follow-up @ [facility] this week for possible surgery vs proceeding with surgery tomorrow. I do not feel that she would tolerate going home to wait and it would just be best to proceed with surgery tomorrow. We carefully reviewed risks of surgery and we will try to perform a cystectomy and "save" her ovary. I explained that she will still be sore and likely require pain meds post-op as well. Will make NPO after midnight. Posted for now at 9:30 am. 06/10/18 16:43 Subjective: Pt continues to complain of significant pain on her RLQ. She says it is a constant ache 7/10 at best and has episodes of severe pain causing her to have nausea/vomiting. She feels she has not gotten any better over the last 3 days of hospitalization. She is needing scheduled Ibuprofen, Tylenol and Dilaudid 2mg Q 4 hours around the clock and doesn't feel that this is really controlling her pain enough. Objective: Vital Signs Temp Pulse Resp BP Pulse Ox 36.8 C 80 14 107/62 97 06/10/18 12:04 06/10/18 12:04 06/10/18 12:04 06/10/18 12:04 06/10/18 09:20 Laboratory Results 06/10/18 06:30 06/10/18 06:30 06/09/18 06/10/18 06/11/18 05:59 05:59 05:59 Intake Total 1300 Output Total 1800 1400 Balance -500 -1400 - Time Spent With Patient Time Spent With Patient: 60 minutes, discussing plan of surgery vs expectant management with patient and her mom - Pending Discharge Pending Discharge Within 24 Hours: Yes Pending Discharge Date: 06/11/18 Pending Discharge Time: 11:00 Physical Exam - Physical Exam General Appearance: WD/WN, alert, mild distress Neck: non-tender, full range of motion, supple Respiratory: chest non-tender, lungs clear, normal breath sounds Cardiac/Chest: regular rate, rhythm Abdomen: normal bowel sounds, soft, other (mod tenderness to deep palpation RLQ no rebound/ guarding) ICD10 Worksheet Patient Problems: Problems Problem Status Onset Hemorrhagic cyst of right ovary Acute
[2018-06-10] MEDS ORDERED: ONDANSETRON DISINTEGRATING 4 MG TAB PO PRN (16:50)
[2018-06-10] MEDS ORDERED: HYDROmorphONE/DILAUDID 1 MG/ML INJ IVP PRN (16:51)
[2018-06-11] MEDS: IBUPROFEN 600 MG TAB PO SCH ×3 (00:06→16:40)
[2018-06-11] MEDS: ACETAMINOPHEN 325 MG TAB PO SCH ×3 (00:06→16:40)
[2018-06-11] MEDS: HYDROmorphONE/DILAUDID 2 MG TAB PO PRN ×2 (00:59→12:46)
[2018-06-11] MEDS: QUEtiapine FUMARATE 25 MG TAB PO SCH (00:59)
[2018-06-11] MEDS: LR 1,000 ML IV SCH (02:00)
[2018-06-11] MEDS ORDERED: SCOPOLAMINE HYDROBROMIDE 1 MG/3 DAYS PATCH TD ONE (09:14)
[2018-06-11] MEDS ORDERED: MIDAZOLAM 2 MG/2 ML VIAL IVP ONE ×2 (09:18→11:29)
--- NOTE | 2018-06-11 09:18 | PDANEPAE ---
ANE History of Present Illness Ovarian cyst ANE Past Medical History - Cardiovascular History Hx Hypertension: No - Pulmonary History Hx Asthma/Reactive Airway Disease: Yes Hx Oxygen in Use at Home: No Hx Sleep Apnea: No Sleep Apnea Screening Result - Last Documented: Negative - Endocrine History Hx Diabetes: No - Chronic Pain History Chronic Pain: No ANE Review of Systems Review of Systems: ANE Patient History - Allergies Allergies/Adverse Reactions: morphine Allergy (Verified 06/08/18 12:50) Hives - Home Medications Home medications: home medication list seen and reviewed Home Medications: LORazepam [Ativan (*)] 0.5 mg PO DAILY PRN 06/07/18 [Last Taken 06/05/18] Naproxen Sodium [Aleve 220 MG (*)] 220 mg PO BID PRN 06/07/18 [Last Taken 1 Week Ago ~05/31/18] Ondansetron Odt [Zofran Odt 4 mg (*)] 4 mg PO Q6H PRN 06/07/18 [Last Taken Unknown] QUEtiapine FUMARATE [Seroquel 25 mg (*)] 25 - 50 mg PO HS 06/07/18 [Last Taken 06/06/18] Sumatriptan Succinate 100 mg PO ONCE PRN 06/07/18 [Last Taken 06/05/18] ZOLMitriptan [Zomig] 5 mg NS ONCE PRN 06/07/18 [Last Taken 06/05/18] - NPO status NPO Since - Liquids (Date): 06/11/18 NPO Since - Liquids (Time): 00:00 NPO Since - Solids (Date): 06/11/18 NPO Since - Solids (Time): 00:00 - Anes Hx Anes Hx: no prior problems, post operative nausea and vomiting - Smoking Hx Smoking Status: Never smoked ANE Labs/Vital Signs - Labs Result Diagrams: 06/10/18 06:30 06/10/18 06:30 - Vital Signs Blood Pressure: 102/62 Heart Rate: 89 Respiratory Rate: 16 O2 Sat (%): 96 Height: 160.02 cm Weight: 56.699 kg ANE Physical Exam - Airway Neck exam: FROM Mallampati Score: Class 2 Mouth exam: normal dental/mouth exam - Pulmonary Pulmonary: no respiratory distress - Cardiovascular Cardiovascular: regular rate and rhythym - ASA Status ASA Status: II ANE Anesthesia Plan Anesthesia Plan: general endotracheal anesthesia
[2018-06-11] MEDS ORDERED: BUPIVACAINE 0.25% 30 ML SDV ONE (09:21)
[2018-06-11] MEDS ORDERED: EPINEPHrine 1 MG/ML INJ ONE (09:21)
[2018-06-11] MEDS ORDERED: SILVER NITRATE APPLICATOR 1 APPL TP ONE (09:21)
[2018-06-11] MEDS ORDERED: SCOPOLAMINE HYDROBROMIDE 1 MG/3 DAYS PATCH TD SCH (09:30)
[2018-06-11] MEDS ORDERED: LIDOCAINE 2% 5 ML SDV ONE (09:31)
[2018-06-11] MEDS ORDERED: ROCURONIUM 50 MG/5 ML VIAL ONE (09:31)
[2018-06-11] MEDS ORDERED: ceFAZolin 2 GM/DEXTROSE 100 ML IV ONE (09:32)
[2018-06-11] MEDS ORDERED: fentaNYL 100 MCG/2 ML INJ ONE ×3 (09:32→11:15)
[2018-06-11] MEDS ORDERED: CEFAZOLIN 2 GM/DEXTROSE/100 ML BAG IV ONE (09:33)
[2018-06-11] MEDS ORDERED: PROPOFOL 200 MG/20 ML VIAL ONE (09:33)
--- NOTE | 2018-06-11 09:33 | PDHPUP ---
History & Physical Update H&P update statement: This history and physical update is based on an assessment of the patient which was completed after admission or registration (within 24 hours), but prior to the surgery/procedure. H&P update: H&P reviewed & patient examined, no change in patient's condition since H&P completed
[2018-06-11] MEDS ORDERED: PROPOFOL/EMULSION 500 MG/50 ML BOTTLE IV ONE (09:54)
[2018-06-11] MEDS ORDERED: DEXAMETHASONE 4 MG/ML VIAL ONE (09:56)
[2018-06-11] MEDS ORDERED: ONDANSETRON 4 MG/2 ML VIAL ONE (09:56)
[2018-06-11] MEDS ORDERED: PROMETHAZINE HCL 25 MG/ML INJ IVP PRN (10:18)
[2018-06-11] MEDS ORDERED: ONDANSETRON 4 MG/2 ML VIAL IVP PRN (10:18)
[2018-06-11] MEDS ORDERED: NALOXONE HCL 0.4 MG/ML INJ IVP PRN ×2 (10:18→11:17)
[2018-06-11] MEDS: SENNOSIDES/DOCUSATE SODIUM TAB PO SCH (10:20)
[2018-06-11] MEDS ORDERED: SUGAMMADEX SODIUM 200 MG/2 ML VIAL IVP ONE (10:55)
--- NOTE | 2018-06-11 11:12 | POSTOPPROG ---
Post Op Note Date of Operation: 06/11/18 Surgeon: Elda Kirkland Bell Staff: Carin Hernandez Anesthesiologist: Dr. German Anesthesia: GET(General Endotracheal) Pre-op Diagnosis: hemorrhagic Right ovarian cyst Post-op Diagnosis: same Procedure: Laparoscopic Rigtht ovarian hemorrhagic cyst Inf/Abcess present in the surg proc area at time of surgery?: No Depth: Organ Space EBL: 50-100 Total fluids administered: 1200 Complications: none Specimen(s): Right ovarian cyst wall
[2018-06-11] MEDS ORDERED: KETOROLAC 30 MG/1 ML SDV IVP ONE (11:17)
[2018-06-11] MEDS ORDERED: KETOROLAC 30 MG/1 ML SDV ONE (11:17)
[2018-06-11] MEDS ORDERED: HYDROmorphONE/DILAUDID 2 MG/ML INJ ONE (11:18)
[2018-06-11] MEDS: fentaNYL 100 MCG/2 ML INJ IVP PRN ×2 (11:21→11:27)
[2018-06-11] MEDS: HYDROmorphONE/DILAUDID 2 MG/ML INJ IVP PRN ×2 (11:22→11:29)
--- NOTE | 2018-06-11 11:23 | POSTANESTH ---
Post Anesthetic Evaluation Cardiovascular Status: Similar to Pre-Op Cond Respiratory Status: Similar to Pre-op Cond. Level of Consciousness/Mental Status: Alert and Oriented Pain Control: Inadeq, Add Tx Required Nausea/Vomiting Control: Adequate, Prn Tx Ordered Complications Possibly Related to Anesthesia: None Noted
[2018-06-11] MEDS ORDERED: MIDAZOLAM 2 MG/2 ML VIAL ONE (11:31)
[2018-06-11] MEDS: LORazepam 1 MG TAB PO PRN (12:54)
[2018-06-11 15:14] VITALS: BP 114/72
--- NOTE | 2018-06-11 17:21 | GOP ---
[f rep st] OPERATIVE REPORT DATE OF OPERATION: 06/11/2018 SURGEON: Elda Kirkland MD CRYPTOLOGIC SUPPORT SPECIALIST: Dr. Carin Hernandez. ANESTHESIA: General. ANESTHESIOLOGIST: Dr. Manan German. PREOPERATIVE DIAGNOSIS: Hemorrhagic right ovarian cyst. POSTOPERATIVE DIAGNOSIS: Hemorrhagic right ovarian cyst. PROCEDURE PERFORMED: Laparoscopic right ovarian cystectomy. FINDINGS: SPECIMENS: Right ovarian cyst wall. ESTIMATED BLOOD LOSS: 50 cc. INDICATIONS: The patient is a 22-year-old, G0 with an unknown last menstrual period, who presented t o the emergency room on 06/07/2018, complaining of right-sided abdominal pain. She woke up with pain in her right lower quadrant, localized. It was exacerbated by sharp movement and she also had nause a and vomiting several times today. Workup included a pelvic ultrasound as well as a CT. The CT was negative for appendicitis. The pelvic ultrasound revealed a right hemorrhagic ovarian cyst, which w as approximately 6 x 7 cm. Patient was admitted because she failed oral pain management. She was ad mitted for IV pain control and was admitted for several days without significant improvement in her p ain. On the , she had a re-evaluation with labs that were stable, showed a minimally decreased he moglobin and hematocrit likely dilutional, normal CMP, and a CT that again revealed a normal appendix and the persistent right ovarian cyst. We discussed treatment options. Because the patient's pain had not improved, she was not able to be stabilized on orals, the decision was made to proceed with l aparoscopic right ovarian cystectomy. Patient was consented for the procedure. She understood the r isks and benefits, the risks including bleeding, infection, damage to internal organs, uterus, tubes, ovaries, bowel, bladder, nerves, blood vessels, ureters, risk of needing an oophorectomy, risk of ne eding additional procedures. She understood these risks and benefits, and agreed to proceed. DESCRIPTION OF PROCEDURE: Patient was taken to the operating room, where she was placed under genera l anesthesia without difficulty. She was prepped and draped in the dorsal lithotomy position, and a Encarnacion catheter was placed in her bladder. After adequate anesthesia was assured and a WHO time-out w as performed, an open-sided speculum was placed in the vagina, and a single-tooth tenaculum was used to grasp the anterior lip of the cervix. An acorn uterine manipulator was placed through the cervica l os. After injection with Marcaine, a 5 mm transverse skin incision was made in the infraumbilical skin fold and the 5 mm atraumatic trocar was placed under direct visualization into the abdomen. Pne umoperitoneum was created with carbon dioxide gas. Patient was placed in deep Trendelenburg. Inspec tion of the pelvis revealed a normal uterus and a right ovarian hemorrhagic cyst. No other abnormali ties were seen. After injection of Marcaine, a 5 mm skin incision was made in the right lower quadra nt, and under direct visualization, a 5 mm atraumatic port was placed on that side as well as on the left side. The uterus was elevated. The bowel was pushed away. The right ovary was elevated and th ere was a hemorrhagic cyst with a small area of bleeding noted. Her right tube was normal, her left ovary and tube were normal, and her uterus was normal. We identified the area of bleeding and, with manipulation, the cyst drained spontaneously with serous and serosanguineous fluid. This was aspirat ed with a suction pressure tester. We identified the area of the cyst and used the LigaSure to cauterize a nd cut to open the ovarian cyst wall and identify the cyst versus the normal ovarian cortex. The cys t wall was cauterized and cut and removed with the LigaSure. Areas of cyst wall were also removed bl untly and the normal ovary was identified. The cortex of the ovary was then cauterized with the Liga Sure as well as normal Bovie cautery, and good hemostasis was assured. The pelvis was copiously irri gated with warm normal saline. There was no further area of bleeding on the ovary and the left tube and ovary were normal. Ureters were identified bilaterally. There was a small tubal cyst on the lef t fallopian tube that was removed also with the LigaSure. We visualized a normal appendix and normal rest of her pelvic anatomy. The trocars were removed under direct visualization. The pneumoperitoneum was allowed to escape. Th e trocar sites were closed with 4-0 Monocryl and strengthened with Dermabond. The tenaculum and the acorn uterine manipulator were removed. There were small areas of bleeding on the anterior lip of th e cervix, which were cauterized with silver nitrate. The patient tolerated the procedure well. Spon ge, lap, needle, and instrument counts were correct x2. The patient went to the recovery room in goo d condition. IV FLUIDS: 1500 cc. URINE OUTPUT: 100 cc. /[id number]/MODL
== END 2018-06-11 16:30 | disposition home or self-care (01) | DRG 743 ==
LOC: EDUNIT# → FOB 18:20 → OBSVTOIN 06-08 17:13
PROVIDERS: ADMIT Obstetrics & Gynecology; ATTEND Obstetrics & Gynecology
PROC: 0UB04ZZ Excision of Right Ovary, Percutaneous Endoscopic Approach (ICD-10-PCS; principal; 2018-06-11 09:30)
DX: N83.201 Unspecified ovarian cyst, right side (principal)
CPT/HCPCS: 96374; G0378; J0171; J0690; J1100; J1170; J1200; J1885; J2250; J2405; J2704; J3010; Q9967

== ENCOUNTER → 2018-07-26 | Outpatient (CLI) | payer OTHER | LOC: FIMAGING 15:35 | PROVIDERS: ATTEND Obstetrics & Gynecology | DX: R10.2 Pelvic and perineal pain (principal); R93.89 Abnormal findings on diagnostic imaging of other specified body structures ==

== ENCOUNTER 2018-08-17 16:52 | Emergency (ER) | payer OTHER ==
[2018-08-17] MEDS ORDERED: NS 1,000 ML IV ONE (17:06)
[2018-08-17] MEDS ORDERED: HYDROmorphONE/DILAUDID 2 MG/ML INJ IVP ONE ×2 (17:06→18:25)
[2018-08-17] MEDS ORDERED: ONDANSETRON 4 MG/2 ML VIAL IVP ONE (17:06)
--- NOTE | 2018-08-17 17:11 | EDPHY ---
H & P Stated Complaint: RLQ pain, Time Seen by Provider: 08/17/18 17:02 HPI/ROS: CHIEF COMPLAINT: Right lower quadrant pain since June HISTORY OF PRESENT ILLNESS: The patient is a 23-year-old female with a history of interstitial cystitis, scoliosis, appendectomy, ovarian cyst, kidney stones, anxiety and depression who also states that she has situs inversus but that it is only some organs because her appendix was on the right side. She states that she had ovarian cyst that was removed surgically in June by Dr. Kirkland. She states that she has had chronic pain ever since the surgery. She has had a CT scan done 3 weeks ago that showed a small amount of fluid in the area that Dr. Kirkland was not concerned a about. She states that over the last 3 days she has developed worsening pain but also nausea vomiting and diarrhea. Nonbloody. No dysuria or hematuria. No rash. She is concerned for postoperative infection or another ovarian cyst or possibly kidney stone. No vaginal bleeding or discharge. She denies risk of . Severity: Moderate Modifying factors: Improvement with pain medications REVIEW OF SYSTEMS: Constitutional: denies: chills, fever, recent illness, recent injury EENTM: denies: blurred vision, double vision, nose congestion Respiratory: denies: cough, shortness of breath Cardiac: denies: chest pain, irregular heart rate, lightheadedness, palpitations Gastrointestinal/Abdominal: See HPI Genitourinary: denies: dysuria, frequency, hematuria, pain Musculoskeletal: denies: joint pain, muscle pain Skin: denies: lesions, rash, jaundice, bruising Neurological: denies: headache, numbness, paresthesia, tingling, dizziness, weakness Hematologic/Lymphatic: denies: blood clots, easy bleeding, easy bruising Immunologic/allergic: denies: HIV/AIDS, transplant 10 systems reviewed and negative except as noted EXAM: GENERAL: Well-appearing, well-nourished and in no acute distress. HEAD: Atraumatic, normocephalic. EYES: Pupils equal round and reactive to light, extraocular movements intact, sclera anicteric, conjunctiva are normal. ENT: TMs normal, nares patent, oropharynx clear without exudates. Moist mucous membranes. NECK: Normal range of motion, supple without lymphadenopathy or JVD. LUNGS: Breath sounds clear to auscultation bilaterally and equal. No wheezes rales or rhonchi. HEART: Regular rate and rhythm without murmurs, rubs or gallops. ABDOMEN: Soft, nontender, normoactive bowel sounds. No guarding, no rebound. No masses appreciated. BACK: No CVA tenderness, no spinal tenderness, step-offs or deformities EXTREMITIES: Normal range of motion, no pitting or edema. No clubbing or cyanosis. NEUROLOGICAL: Cranial nerves II through XII grossly intact. Normal speech, normal gait. 5/5 strength, normal movement in all extremities, normal sensation , normal reflexes PSYCH: Normal mood, normal affect. SKIN: Warm, dry, normal turgor, no visible rashes or lesions. Source: Patient Exam Limitations: No limitations - Personal History Current Tetanus/Diphtheria Vaccine: Yes Current Tetanus Diphtheria and Acellular Pertussis (TDAP): Yes - Medical/Surgical History Hx Asthma: Yes Hx Chronic Respiratory Disease: No Hx Diabetes: No Hx Cardiac Disease: No Hx Renal Disease: No Hx Cirrhosis: No Hx Alcoholism: No Hx HIV/AIDS: No Hx Splenectomy or Spleen Trauma: No Other PMH: anemia, malrotation, interstitial cystitis w/ multiple surgeries,. scoliosis w/ surgical repair., appy,. migraines, Hemmorhagic R ovarian Cyst . anxiety, kidney stones. depression. IBS. interstistial cystitis - Family History Significant Family History: No pertinent family hx - Social History Smoking Status: Never smoked Alcohol Use: None Constitutional: Initial Vital Signs Temperature (C) 37 C 08/17/18 16:58 Heart Rate 95 08/17/18 16:58 Respiratory Rate 16 08/17/18 16:58 Blood Pressure 135/64 H 08/17/18 16:58 O2 Sat (%) 95 08/17/18 16:58 O2 Delivery Mode Room Air Allergies/Adverse Reactions: morphine Allergy (Verified 08/17/18 16:57) Hives Home Medications: Medication Instructions Recorded LORazepam [Ativan (*)] 0.5 mg PO DAILY PRN 06/07/18 Naproxen Sodium [Aleve 220 MG (*)] 220 mg PO BID PRN 06/07/18 QUEtiapine FUMARATE [Seroquel 25 25 - 50 mg PO HS 06/07/18 mg (*)] Sumatriptan Succinate 100 mg PO ONCE PRN 06/07/18 ZOLMitriptan [Zomig] 5 mg NS ONCE PRN 06/07/18 Ibuprofen [Motrin (*)] 600 mg PO Q6HRS #30 tab 06/11/18 Ondansetron Odt [Zofran Odt 4 mg 4 mg PO Q4HRS PRN #30 tab 06/11/18 (*)] Hydrocodone/APAP 5/325 [[place] 1 - 2 tab PO Q4H PRN #14 tab 08/17/18 5/325 (RX)] Ibuprofen 600 mg PO TID PRN #30 tablet 08/17/18 Metoclopramide [Reglan 10 mg tab 10 mg PO BID PRN #10 tab 08/17/18 (RX)] Ondansetron Odt [Zofran Odt 4 mg 4 mg PO Q4 PRN #20 tab 08/17/18 (RX)] Vicodin 5-300 mg Tablet 08/17/18 Medical Decision Making - Diagnostics Imaging Results: Imaging Impressions Pelvic/Renal Ultrasound 08/17/18 17:07 Impression: 1. No acute findings. 2. Minimally complex left ovarian cyst for which ultrasound follow-up is recommended in 6 weeks to document resolution. Findings discussed with LANCE CASTANEDA 08/17/2018 at 18:11. Abdomen CT 08/17/18 18:21 Impression: 1. No acute findings. 2. Mild stool in the proximal colon. 3. Additional findings as above. Findings discussed with LANCE CASTANEDA 08/17/2018 at 19:11. Imaging: Discussed imaging studies w/ awning maker and installer Radiologist ED Course/Re-evaluation: We discussed the ultrasound lab results which a thus far very reassuring. The patient like to get a CT scan to rule out kidney stone. She endorses sharp pain. She states that sometimes she does have left-sided pain 2 which may be from her cyst. Will have her follow up with Dr. Kirkland. 7:30 p.[address]. we discussed the CT results. The patient is reassured. Her migraine has resolved. I do not have an explanation for chronic abdominal pain. I suspect that the nausea vomiting and diarrhea over the last 3 days is likely from a viral gastroenteritis. Her abdominal exam is nontender. She does have an ovarian cyst. She will follow up with Dr. Kirkland for the cyst and for surgical follow-up. She states that she has had this abdominal pain ever since the surgery. She has now had 2 CT scans and a ultrasound all of which show normal right-sided abdomen and adnexa. Patient states that she is not currently sexually active and has been tested by her OBGYN for STDs and does not wish to have pelvic exam. She asked for several prescriptions and otherwise feels ready to go home. Discussed indications for returning. Also the patient tells me now that she was not diagnosed with situs inversus but was told at 1 point several years ago that she had a malrotation. She thinks they meant of her intestines. Differential Diagnosis: Partial list of the Differential diagnosis considered include but were not limited to; gastritis, chronic abdominal pain, anxiety, ovarian cyst and although unlikely based on the history and physical exam, I also considered , kidney stone, urinary tract infection, torsion, ischemia, volvulus. I discussed these differential diagnoses and the plan with the patient as well as the usual and expected course. The patient understands that the diagnosis is provisional and that in medicine we are not always correct and that further workup is often warranted. Usual and customary warnings were given. All of the patient's questions were answered. The patient was instructed to return to the emergency department should the symptoms at all worsen or return, otherwise to followup with the physician as we discussed. - Data Points Laboratory Results: Laboratory Results 08/17/18 17:15 08/17/18 17:15 08/17/18 08/17/18 08/17/18 17:20 17:15 17:15 WBC RBC Hgb Hct MCV MCH MCHC RDW Plt Count MPV Neut % (Auto) Lymph % (Auto) [place] % (Auto) Eos % (Auto) Baso % (Auto) Nucleat RBC Rel Count Absolute Neuts (auto) Absolute Lymphs (auto) Absolute Monos (auto) Absolute Eos (auto) Absolute Basos (auto) Absolute Nucleated RBC Immature Gran % Immature Gran # PT INR APTT Sodium 138 mEq/L mEq/L (135-145) Potassium 4.1 mEq/L mEq/L (3.5-5.2) Chloride 103 mEq/L mEq/L (97-110) Carbon Dioxide 24 mEq/l mEq/l (22-31) Anion Gap 11 mEq/L mEq/L (6-14) BUN 8 mg/dL mg/dL (7-23) Creatinine 0.6 mg/dL mg/dL (0.6-1.0) Estimated GFR > 60 Glucose 77 mg/dL mg/dL (70-100) Calcium 9.9 mg/dL mg/dL (8.5-10.4) Total Bilirubin 0.3 mg/dL mg/dL (0.1-1.4) Conjugated Bilirubin 0.3 mg/dL mg/dL (0.0-0.5) Unconjugated Bilirubin 0.0 mg/dL mg/dL (0.0-1.1) AST 17 IU/L IU/L (14-46) ALT 27 IU/L IU/L (9-52) Alkaline Phosphatase 61 IU/L IU/L (38-126) Total Protein 7.6 g/dL g/dL (6.3-8.2) Albumin 4.7 g/dL g/dL (3.5-5.0) Lipase 234 IU/L IU/L (23-300) Beta HCG, Qual NEGATIVE Urine Color YELLOW Urine Appearance CLEAR Urine pH 6.0 (5.0-7.5) Ur Specific [place] 1.012 (1.002-1.030) Urine Protein NEGATIVE (NEGATIVE) Urine Ketones NEGATIVE (NEGATIVE) Urine Blood NEGATIVE (NEGATIVE) Urine Nitrate NEGATIVE (NEGATIVE) Urine Bilirubin NEGATIVE (NEGATIVE) Urine Urobilinogen NEGATIVE EU EU (0.2-1.0) Ur Leukocyte Esterase NEGATIVE (NEGATIVE) Urine RBC 1-3 /hpf /hpf (0-3) Urine WBC 1-3 /hpf /hpf (0-3) Ur Epithelial Cells TRACE /lpf /lpf (NONE-1+) Urine Bacteria TRACE /hpf H /hpf (NONE SEEN) Urine Glucose NEGATIVE (NEGATIVE) 08/17/18 08/17/18 17:15 17:15 WBC 11.41 10^3/uL H 10^3/uL (3.80-9.50) RBC 4.87 10^6/uL 10^6/uL (4.18-5.33) Hgb 14.8 g/dL g/dL (12.6-16.3) Hct 43.8 % % (38.0-47.0) MCV 89.9 fL fL (81.5-99.8) MCH 30.4 pg pg (27.9-34.1) MCHC 33.8 g/dL g/dL (32.4-36.7) RDW 12.8 % % (11.5-15.2) Plt Count 367 10^3/uL 10^3/uL (150-400) MPV 8.6 fL L fL (8.7-11.7) Neut % (Auto) 74.8 % H % (39.3-74.2) Lymph % (Auto) 18.6 % % (15.0-45.0) [place] % (Auto) 5.6 % % (4.5-13.0) Eos % (Auto) 0.3 % L % (0.6-7.6) Baso % (Auto) 0.4 % % (0.3-1.7) Nucleat RBC Rel Count 0.0 % % (0.0-0.2) Absolute Neuts (auto) 8.55 10^3/uL H 10^3/uL (1.70-6.50) Absolute Lymphs (auto) 2.12 10^3/uL 10^3/uL (1.00-3.00) Absolute Monos (auto) 0.64 10^3/uL 10^3/uL (0.30-0.80) Absolute Eos (auto) 0.03 10^3/uL 10^3/uL (0.03-0.40) Absolute Basos (auto) 0.04 10^3/uL 10^3/uL (0.02-0.10) Absolute Nucleated RBC 0.00 10^3/uL 10^3/uL (0-0.01) Immature Gran % 0.3 % % (0.0-1.1) Immature Gran # 0.03 10^3/uL 10^3/uL (0.00-0.10) PT 12.5 SEC SEC (12.0-15.0) INR 0.97 (0.83-1.16) APTT 30.9 SEC SEC (23.0-38.0) Sodium Potassium Chloride Carbon Dioxide Anion Gap BUN Creatinine Estimated GFR Glucose Calcium Total Bilirubin Conjugated Bilirubin Unconjugated Bilirubin AST ALT Alkaline Phosphatase Total Protein Albumin Lipase Beta HCG, Qual Urine Color Urine Appearance Urine pH Ur Specific [place] Urine Protein Urine Ketones Urine Blood Urine Nitrate Urine Bilirubin Urine Urobilinogen Ur Leukocyte Esterase Urine RBC Urine WBC Ur Epithelial Cells Urine Bacteria Urine Glucose Medications Given: Discontinued Medications Acetaminophen (Tylenol) 1,000 mg PO EDNOW ONE Stop: 08/17/18 18:26 Last Admin: 08/17/18 18:42 Dose: 1,000 mg Hydromorphone HCl (Dilaudid) 0.5 mg IVP EDNOW ONE Stop: 08/17/18 17:07 Last Admin: 08/17/18 17:29 Dose: 0.5 mg Hydromorphone HCl (Dilaudid) 0.5 mg IVP EDNOW ONE Stop: 08/17/18 18:26 Last Admin: 08/17/18 18:42 Dose: 0.5 mg Sodium Chloride (Ns) 1,000 mls @ 0 mls/hr IV EDNOW ONE; Wide Open PRN Reason: Protocol Stop: 08/17/18 17:07 Last Admin: 08/17/18 17:28 Dose: 1,000 mls Metoclopramide HCl (Reglan Injection) 10 mg IVP EDNOW ONE Stop: 08/17/18 18:25 Last Admin: 08/17/18 18:42 Dose: 10 mg Ondansetron HCl (Zofran) 4 mg IVP EDNOW ONE Stop: 08/17/18 17:07 Last Admin: 08/17/18 17:29 Dose: 4 mg Departure - Departure Disposition: Home, Routine, Self-Care Clinical Impression: Acute gastroenteritis, Chronic abdominal pain, Left ovarian cyst Condition: Fair Instructions: Ovarian Cyst (ED), Gastroenteritis (ED), Chronic Abdominal Pain ( ED) Referrals: NONE *PRIMARY CARE P,. [Primary Care Provider] - As per Instructions Elda Kirkland MD [Medical Doctor] - As per Instructions Brandyn Cheng MD, FACG [Medical Doctor] - As per Instructions Prescriptions: Hydrocodone/APAP 5/325 [[place] 5/325 (RX)] 1 - 2 tab PO Q4H PRN #14 tab PRN Reason: Pain, Moderate Ibuprofen 600 mg PO TID PRN #30 tablet PRN Reason: Pain, Moderate Metoclopramide [Reglan 10 mg tab (RX)] 10 mg PO BID PRN #10 tab PRN Reason: Headache Ondansetron Odt [Zofran Odt 4 mg (RX)] 4 mg PO Q4 PRN #20 tab PRN Reason: Nausea & Vomiting
[2018-08-17 17:31] LABS: PLATELET COUNT 367 10^3/uL (150-400)
[2018-08-17 17:49] LABS: INR 0.97 (0.83-1.16); PROTIME(PATIENT) 12.5 SEC (12.0-15.0)
[2018-08-17] MEDS ORDERED: METOCLOPRAMIDE 10 MG/2 ML VIAL IVP ONE (18:24)
[2018-08-17] MEDS ORDERED: ACETAMINOPHEN 500 MG TAB PO ONE (18:25)
[2018-08-17] MEDS ORDERED: IOPAMIDOL (ISOVUE-300) 100 ML BTL ONE (18:26)
[2018-08-17 19:39] VITALS: BP 118/72
== END 2018-08-17 19:40 | disposition home or self-care (01) ==
DX: A08.39 Other viral enteritis (principal); R10.31 Right lower quadrant pain; N83.202 Unspecified ovarian cyst, left side; E86.9 Volume depletion, unspecified
CPT/HCPCS: 96374; J1170; J2405; J2765; Q9967